=== PATIENT | male | born 1975 | race Caucasian/White ===

== ENCOUNTER 2019-06-01 14:42 | Observation (INO) | payer OTHER ==
[2019-06-01] MEDS ORDERED: Sodium Chloride 0.9% 1000 ML 1,000 ML IV SCH ×2 (15:00→18:13)
--- NOTE | 2019-06-01 15:00 | ERPHSYRPT ---
- History of Present Illness Time Seen by Provider: 06/01/19 15:00 Source: patient Exam Limitations: no limitations Physician History: 43 y/o white male with h/o htn on lisinopril who does not have a pcp, presents with asymptomatic high bp. found at his work. clinic there does periodic checks and found to have tachycardia and htn. Timing/Duration: today Severity: moderate Associated Symptoms: denies symptoms Allergies/Adverse Reactions: Penicillins Allergy (Verified 06/01/19 14:55) - Review of Systems Constitutional: No Symptoms Eyes: No Symptoms Ears, Nose, & Throat: No Symptoms Respiratory: No Symptoms Cardiac: No Symptoms Abdominal/Gastrointestinal: No Symptoms Genitourinary Symptoms: No Symptoms Musculoskeletal: No Symptoms Skin: No Symptoms Neurological: No Symptoms Psychological: No Symptoms Endocrine: No Symptoms Hematologic/Lymphatic: No Symptoms Immunological/Allergic: No Symptoms All Other Systems: Reviewed and Negative - Past Medical History Pertinent Past Medical History: Yes Neurological History: No Pertinent History ENT History: No Pertinent History Cardiac History: Hypertension Respiratory History: No Pertinent History Endocrine Medical History: No Pertinent History Musculoskeletal History: No Pertinent History GI Medical History: No Pertinent History History: No Pertinent History Psycho-Social History: No Pertinent History Male Reproductive Disorders: No Pertinent History - Past Surgical History Past Surgical History: No Neuro Surgical History: No Pertinent History Cardiac: No Pertinent History Respiratory: No Pertinent History Gastrointestinal: No Pertinent History Genitourinary: No Pertinent History Musculoskeletal: No Pertinent History Male Surgical History: No Pertinent History - Nursing Vital Signs Nursing Vital Signs: Initial Vital Signs Temperature 98.1 F 06/01/19 14:57 Pulse Rate 115 H 06/01/19 14:57 Respiratory Rate 18 06/01/19 14:57 Blood Pressure 168/117 06/01/19 14:57 O2 Sat by Pulse Oximetry 97 06/01/19 14:57 Pain Scale Pain Intensity 0 - Physical Exam General Appearance: no apparent distress, alert, anxiety Eye Exam: PERRL/EOMI, eyes nml inspection Ears, Nose, Throat Exam: normal ENT inspection, moist mucous membranes Neck Exam: normal inspection, non-tender, supple, full range of motion Respiratory Exam: normal breath sounds, lungs clear, airway intact, No chest tenderness, No respiratory distress Cardiovascular Exam: tachycardia Gastrointestinal/Abdomen Exam: soft, normal bowel sounds, No tenderness, No guarding, No rebound Rectal Exam: not done Back Exam: normal inspection, normal range of motion, No CVA tenderness, No vertebral tenderness Extremity Exam: normal inspection, normal range of motion, pelvis stable Neurologic Exam: alert, oriented x 3, cooperative, curtain hemmer automatic II-XII nml as tested Skin Exam: normal color, warm, dry Lymphatic Exam: adenopathy SpO2 Interpretation: normal O2 Delivery: Room Air - Course Nursing assessment & vital signs reviewed: Yes EKG Interpreted by Me: RATE ([id number]), Sinus Rhythm, Sinus Tach, NORMAL AXIS, NORMAL INTERVALS, NORMAL QRS, Other (no comparison ekg) Ordered Tests: Active Orders 24 hr Category Date Time Status Allocation Analyst STAT Care 06/01/19 15:01 Active EKG-ER Only STAT Care 06/01/19 15:00 Active IV Insertion STAT Care 06/01/19 15:00 Active Pulse Oximetry (ED) STAT Care 06/01/19 15:00 Active CBC W DIFF Stat Lab 06/01/19 15:20 Completed CMP Stat Lab 06/01/19 15:20 Completed MAGNESIUM Stat Lab 06/01/19 15:20 Completed Manual Differential NC Stat Lab 06/01/19 15:20 Completed NT PRO BNP Stat Lab 06/01/19 15:20 Completed TROPONIN Q3H Lab 06/01/19 15:20 Completed TROPONIN Q3H Lab 06/01/19 18:00 Ordered TROPONIN Q3H Lab 06/01/19 21:00 Ordered TROPONIN Q3H Lab 06/02/19 00:00 Ordered TROPONIN Q3H Lab 06/02/19 03:00 Ordered UA W/RFX UR CULTURE Stat Lab 06/01/19 15:20 Completed Urine Triage Profile Stat Lab 06/01/19 15:20 Completed Transfer Order Routine Transfer 06/01/19 Ordered Medication Summary Generic Name Dose Route Start Last Admin Trade Name Freq PRN Reason Stop Dose Admin Carvedilol 6.25 mg 06/02/19 17:34 Coreg 6.25 Mg PO 06/02/19 17:35 STAT ONE Sodium Chloride 1,000 mls @ 50 mls/hr 06/01/19 15:00 06/01/19 15:18 Sodium Chloride 0.9% 1000 Ml IV 07/01/19 14:59 50 mls/hr .Q20H [place] Administration Discontinued Medications Generic Name Dose Route Start Last Admin Trade Name Freq PRN Reason Stop Dose Admin Hydralazine HCl 10 mg 06/01/19 16:53 06/01/19 16:57 Apresoline 20 Mg/Ml Inj IV 06/01/19 16:54 10 mg STAT ONE Administration Hydralazine HCl Confirm 06/01/19 16:55 Apresoline 20 Mg/Ml Inj Administered 06/01/19 16:56 Dose 20 mg .ROUTE .STK-MED ONE Labetalol HCl 10 mg 06/01/19 15:03 06/01/19 15:18 Trandate 20 Mg/5 Ml Syringe IV 06/01/19 15:04 10 mg STAT ONE Administration Labetalol HCl Confirm 06/01/19 15:16 Trandate 100 Mg/20 Ml Mdv For Drip Administered 06/01/19 15:17 Dose 100 mg IV .STK-MED ONE Labetalol HCl 10 mg 06/01/19 16:21 06/01/19 16:29 Trandate 20 Mg/5 Ml Syringe IV 06/01/19 16:22 10 mg STAT ONE Administration Labetalol HCl Confirm 06/01/19 16:28 Trandate 100 Mg/20 Ml Mdv For Drip Administered 06/01/19 16:29 Dose 100 mg IV .STK-MED ONE Lab/Rad Data: Laboratory Result Diagrams 06/01/19 15:20 06/01/19 15:20 Laboratory Results 06/01/19 06/01/19 06/01/19 Range/Units 15:20 15:20 15:20 WBC (4.0-10.5) K/mm3 RBC (4.1-5.6) M/mm3 Hgb (12.5-18.0) gm/dl Hct (42-50) % MCV (78-100) fl MCH (26-32) pg MCHC (32-36) g/dl RDW (11.5-14.0) % Plt Count (150-450) K/mm3 MPV (7.5-11.0) fl Segmented Neutrophils (36.-66.) % Lymphocytes (Manual) (24-44) % Monocytes (Manual) (0.0-12.0) % Toxic Granulation Platelet Estimate (NORMAL) RBC Morphology Sodium (137-145) mmol/L Potassium (3.5-5.1) mmol/L Chloride (98-107) mmol/L Carbon Dioxide (22-30) mmol/L Anion Gap (5-15) MEQ/L BUN (9-20) mg/dL Creatinine (0.66-1.25) mg/dL Estimated GFR ML/MIN Glucose (74-106) mg/dL Calcium (8.4-10.2) mg/dL Magnesium (1.6-2.3) mg/dL Total Bilirubin (0.2-1.3) mg/dL AST (17-59) U/L ALT (0-50) U/L Alkaline Phosphatase (38-126) U/L Troponin I < 0.012 (0.000-0.034) ng/mL NT-Pro-B Natriuret Pep (0-450) pg/mL Serum Total Protein (6.3-8.2) g/dL Albumin (3.5-5.0) g/dL Urine Color YELLOW (YELLOW) Urine Appearance CLEAR (CLEAR) Urine pH 7.0 (5-6) Ur Specific [place] 1.020 (1.005-1.025) Urine Protein 30 (Negative) Urine Ketones NEGATIVE (NEGATIVE) Urine Blood NEGATIVE (0-5) Arthur/ul Urine Nitrite NEGATIVE (NEGATIVE) Urine Bilirubin NEGATIVE (NEGATIVE) Urine Urobilinogen 2 (0-1) mg/dL Ur Leukocyte Esterase NEGATIVE (NEGATIVE) Urine WBC (Auto) NONE (0-5) /HPF Urine RBC (Auto) 0-2 (0-2) /HPF U Epithel Cells (Auto) NONE (FEW) /HPF Urine Bacteria (Auto) NONE (NEGATIVE) /HPF Urine Mucus (Auto) SLIGHT (NEGATIVE) /HPF Urine Culture Reflexed NO (NO) Urine Glucose NEGATIVE (NEGATIVE) mg/dL Urine Opiates Level NEGATIVE (NEGATIVE) Ur Methadone NEGATIVE (NEGATIVE) Urine Barbiturates NEGATIVE (NEGATIVE) Ur Phencyclidine (PCP) NEGATIVE (NEGATIVE) Urine Amphetamine NEGATIVE (NEGATIVE) U Benzodiazepine Level NEGATIVE (NEGATIVE) Urine Cocaine NEGATIVE (NEGATIVE) Urine Marijuana (THC) NEGATIVE (NEGATIVE) 06/01/19 06/01/19 Range/Units 15:20 15:20 WBC 14.0 H (4.0-10.5) K/mm3 RBC 5.15 (4.1-5.6) M/mm3 Hgb 15.8 (12.5-18.0) gm/dl Hct 46.4 (42-50) % MCV 90.1 (78-100) fl MCH 30.7 (26-32) pg MCHC 34.1 (32-36) g/dl RDW 13.2 (11.5-14.0) % Plt Count 344 (150-450) K/mm3 MPV 9.3 (7.5-11.0) fl Segmented Neutrophils 85 H (36.-66.) % Lymphocytes (Manual) 12 L (24-44) % Monocytes (Manual) 3 (0.0-12.0) % Toxic Granulation 1+ Platelet Estimate NORMAL (NORMAL) RBC Morphology NORMAL Sodium 141 (137-145) mmol/L Potassium 3.9 (3.5-5.1) mmol/L Chloride 106 (98-107) mmol/L Carbon Dioxide 24 (22-30) mmol/L Anion Gap 14.6 (5-15) MEQ/L BUN 15 (9-20) mg/dL Creatinine 0.93 (0.66-1.25) mg/dL Estimated GFR > 60.0 ML/MIN Glucose 120 H (74-106) mg/dL Calcium 10.1 (8.4-10.2) mg/dL Magnesium 1.7 (1.6-2.3) mg/dL Total Bilirubin 0.50 (0.2-1.3) mg/dL AST 70 H (17-59) U/L ALT 102 H (0-50) U/L Alkaline Phosphatase 88 (38-126) U/L Troponin I (0.000-0.034) ng/mL NT-Pro-B Natriuret Pep 30.9 (0-450) pg/mL Serum Total Protein 8.8 H (6.3-8.2) g/dL Albumin 4.9 (3.5-5.0) g/dL Urine Color (YELLOW) Urine Appearance (CLEAR) Urine pH (5-6) Ur Specific [place] (1.005-1.025) Urine Protein (Negative) Urine Ketones (NEGATIVE) Urine Blood (0-5) Arthur/ul Urine Nitrite (NEGATIVE) Urine Bilirubin (NEGATIVE) Urine Urobilinogen (0-1) mg/dL Ur Leukocyte Esterase (NEGATIVE) Urine WBC (Auto) (0-5) /HPF Urine RBC (Auto) (0-2) /HPF U Epithel Cells (Auto) (FEW) /HPF Urine Bacteria (Auto) (NEGATIVE) /HPF Urine Mucus (Auto) (NEGATIVE) /HPF Urine Culture Reflexed (NO) Urine Glucose (NEGATIVE) mg/dL Urine Opiates Level (NEGATIVE) Ur Methadone (NEGATIVE) Urine Barbiturates (NEGATIVE) Ur Phencyclidine (PCP) (NEGATIVE) Urine Amphetamine (NEGATIVE) U Benzodiazepine Level (NEGATIVE) Urine Cocaine (NEGATIVE) Urine Marijuana (THC) (NEGATIVE) - Progress Progress: improved, re-examined Progress Note: 06/01/19 17:[address] johnson. i reviewed pt hx, condition, lab, ekg results. inpt admission, hydralazine iv with parameters and add carvedilol 6.25mg po bid. Discussed with : Sophie Counseled pt/family regarding: lab results, diagnosis, need for follow-up - Departure Departure Disposition: In-patient Admission Clinical Impression: Hypertensive urgency Condition: Fair Critical Care Time: Yes Critical Care Time(excluding separately billable procedures): Critical 30-74 mins Referrals: DOCTOR,NO FAMILY [Primary Care Provider] -
[2019-06-01] MEDS ORDERED: TRANDATE 20 MG/5 ML SYRINGE IV ONE ×2 (15:03→16:21)
[2019-06-01] MEDS ORDERED: TRANDATE 100 MG/20 ML MDV FOR DRIP IV ONE ×2 (15:16→16:28)
[2019-06-01] MEDS ORDERED: Sodium Chloride 0.9% 1000 ML 1,000 ML ONE (15:17)
[2019-06-01 15:28] LABS: Hematocrit 46.4 % (42-50); Hemoglobin 15.8 gm/dl (12.5-18.0); Mean Cell Volume 90.1 fl (78-100); Mean Corpuscular Hemoglobin 30.7 pg (26-32); Mean Corpuscular Hgb Concent. 34.1 g/dl (32-36); Mean Platelet Volume 9.3 fl (7.5-11.0); Platelet Count 344 K/mm3 (150-450); Red Blood Count 5.15 M/mm3 (4.1-5.6); Red Cell Distribution Width 13.2 % (11.5-14.0)
[2019-06-01 15:31] LABS: Appearance CLEAR (CLEAR); Bilirubin NEGATIVE (NEGATIVE); Blood NEGATIVE Ery/ul (0-5); Glucose NEGATIVE (NEGATIVE); Ketones NEGATIVE (NEGATIVE); Leukocyte Esterase NEGATIVE (NEGATIVE); Mucus SLIGHT /HPF (NEGATIVE); Nitrite NEGATIVE (NEGATIVE); Protein,Urine Dip 30 (Negative); RBC 0-2 /HPF (0-2); Urobilinogen 2 mg/dL (0-1)
[2019-06-01 15:44] LABS: Amphetamine,Urine NEGATIVE (NEGATIVE); Barbiturate,Urine NEGATIVE (NEGATIVE); Benzodiazepine,Urine NEGATIVE (NEGATIVE); Cocaine,Urine NEGATIVE (NEGATIVE); Methadone,Urine NEGATIVE (NEGATIVE); Opiate,Urine NEGATIVE (NEGATIVE); PCP,Urine NEGATIVE (NEGATIVE); THC,Urine NEGATIVE (NEGATIVE)
[2019-06-01 15:50] LABS: ALBUMIN 4.9 g/dL (3.5-5.0); ALKALINE PHOSPHATASE 88 U/L (38-126); ANION GAP 14.6 MEQ/L (5-15); BLOOD UREA NITROGEN 15 mg/dL (9-20); CHLORIDE 106 mmol/L (98-107); Calcium 10.1 mg/dL (8.4-10.2); Carbon Dioxide 24 mmol/L (22-30); Creatinine 1 0.93 mg/dL (0.66-1.25); Glucose 120 mg/dL (74-106); MAGNESIUM 1.7 mg/dL (1.6-2.3); NT PRO BNP 30.9 pg/mL (0-450); Potassium 3.9 mmol/L (3.5-5.1); SGOT/AST 70 U/L (17-59); SGPT/ALT 102 U/L (0-50); SODIUM 141 mmol/L (137-145); Total Protein 8.8 g/dL (6.3-8.2)
[2019-06-01 15:56] LABS: Lymphocytes 12 % (24-44); Monocyte 3 % (0.0-12.0); Neutrophils 85 % (36.-66.); Platelet Estimate NORMAL (NORMAL); Total Cells Counted 100; Toxic Granulation 1+
[2019-06-01] MEDS ORDERED: APRESOLINE 20 MG/ML INJ IV ONE (16:53)
[2019-06-01] MEDS ORDERED: APRESOLINE 20 MG/ML INJ ONE (16:55)
[2019-06-01] MEDS ORDERED: Coreg 6.25 MG ONE (17:50)
[2019-06-01] MEDS ORDERED: TYLENOL 325 MG PO PRN (18:13)
[2019-06-01] MEDS ORDERED: Zofran 4 MG/2 ML VIAL IV PRN (18:13)
[2019-06-01] MEDS: Coreg 6.25 MG PO SCH (20:08)
[2019-06-01] MEDS: APRESOLINE 20 MG/ML INJ IV PRN (20:10)
[2019-06-02] MEDS: APRESOLINE 20 MG/ML INJ IV PRN (00:09)
[2019-06-02 05:52] LABS: BASOPHIL % 0.3 % (0.0-0.4); Basophil (Absolute #) 0.03 (0-0.4); Eosinophil % 1.1 % (0.00-5.0); Eosinophil (Absolute #) 0.13 (0-0.5); Hematocrit 46.4 % (42-50); Hemoglobin 15.4 gm/dl (12.5-18.0); Lymphocyte (Absolute #) 2.02 (1.0-4.6); Lymphocytes % 17.3 % (24.0-44.0); Mean Cell Volume 91.3 fl (78-100); Mean Corpuscular Hemoglobin 30.3 pg (26-32); Mean Corpuscular Hgb Concent. 33.2 g/dl (32-36); Mean Platelet Volume 9.9 fl (7.5-11.0); Monocytes % 12.8 % (0.0-12.0); Neutrophil % 68.5 % (36.0-66.0); Platelet Count 307 K/mm3 (150-450); Red Blood Count 5.08 M/mm3 (4.1-5.6); Red Cell Distribution Width 13.3 % (11.5-14.0); White Blood Count 11.7 K/mm3 (4.0-10.5)
[2019-06-02 06:03] LABS: ANION GAP 10.4 MEQ/L (5-15); BLOOD UREA NITROGEN 15 mg/dL (9-20); CHLORIDE 108 mmol/L (98-107); Calcium 9.9 mg/dL (8.4-10.2); Carbon Dioxide 26 mmol/L (22-30); Creatinine 1 0.98 mg/dL (0.66-1.25); Glucose 105 mg/dL (74-106); Potassium 3.9 mmol/L (3.5-5.1); SODIUM 141 mmol/L (137-145)
[2019-06-02 07:42] VITALS: BP 133/83; PULSE 79; O2SAT 97
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
[2019-06-02] MEDS: Coreg 6.25 MG PO SCH (10:31)
[2019-06-02] MEDS ORDERED: Zestril 20 MG PO SCH (11:00)
[2019-06-02] MEDS ORDERED: ZOCOR 20MG PO SCH (11:00)
[2019-06-02] MEDS ORDERED: Coreg 6.25 MG PO ONE (17:34)
[2019-06-03] MEDS ORDERED: NON-FORMULARY ITEM (Atorvastatin Calcium 20 MG) PO SCH (10:00)
== END 2019-06-02 10:40 | disposition home or self-care (01) ==
LOC: ED 14:42 → MED SURG 18:10
PROVIDERS: ADMIT Family Medicine; ATTEND Family Medicine
DX: I16.0 Hypertensive urgency (principal); R00.0 Tachycardia, unspecified; I10 Essential (primary) hypertension; E78.00 Pure hypercholesterolemia, unspecified; Z79.899 Other long term (current) drug therapy
CPT/HCPCS: 36000; 36415; 80048; 80053; 80307; 81001; 83735; 83880; 84484; 85025; 93005; 93041; 93268; 94760; 96374; 96375; 99285; 99291; G0378; J0360; A9270-GY